=== PATIENT | female | born 1955 | race Two or more races ===

== ENCOUNTER 2019-01-18 12:51 | Emergency (ER) | payer MEDICARE, MEDICAID ==
[~2019-01-18] VITALS: Ht 154.9 cm; Wt 68.0 kg
[2019-01-18 13:53] VITALS: BP 168/77
--- NOTE | 2019-01-18 14:20 | PHYS DOC ---
Past Medical History Past Medical History: Asthma, Diabetes-Type II, High Cholesterol Past Surgical History: Hysterectomy, Other Additional Past Surgical Histo: R. SHOULDER Alcohol Use: None Drug Use: None Adult General Chief Complaint Chief Complaint: ASTHMA HPI HPI Patient is a 63 year old female who presents with persistent cough for 3-4 weeks, saw PCP prescribed allergy medication. Hx of asthma and is out of her inhaler. Used her brothers inhaler and felt better. She denies CP or SOB States the coughing is worse at night. No Hx of CHF, denies leg pain or swelling She states she is here for an inhaler. Patient resting in no distress Review of Systems Review of Systems Constitutional: Denies fever or chills [] Eyes: Denies change in visual acuity, redness, or eye pain [] HENT: Denies nasal congestion or sore throat [] Respiratory: Denies shortness of breath []C/O persistent cough Cardiovascular: No additional information not addressed in HPI [] GI: Denies abdominal pain, nausea, vomiting, bloody stools or diarrhea [] : Denies dysuria or hematuria [] Musculoskeletal: Denies back pain or joint pain [] Integument: Denies rash or skin lesions [] Neurologic: Denies headache, focal weakness or sensory changes [] Endocrine: Denies polyuria or polydipsia [] All other systems were reviewed and found to be within normal limits, except as documented in this note. Current Medications Current Medications Lisinopril Jesenia Metformin Allergies Allergies NKDA Physical Exam Physical Exam Constitutional: Well developed, well nourished, no acute distress, non-toxic appearance. [] HENT: Normocephalic, atraumatic, bilateral external ears normal, oropharynx moist, no oral exudates, nose congested Eyes: PERRLA, EOMI, conjunctiva normal, no discharge. [] Neck: Normal range of motion, no tenderness, supple, no stridor. [] Cardiovascular:Heart rate regular rhythm, no murmur [] Lungs & Thorax: Bilateral breath sounds clear to auscultation, mild dry cough on exam Abdomen: Bowel sounds normal, soft, no tenderness, no masses, no pulsatile masses. [] Skin: Warm, dry, no erythema, no rash. [] Back: No tenderness, no CVA tenderness. [] Extremities: No tenderness, no cyanosis, no clubbing, ROM intact, no edema. [] Neurologic: Alert and oriented X 3, normal motor function, normal sensory function, no focal deficits noted. [] Psychologic: Affect normal, judgement normal, mood normal. [] Current Patient Data Vital Signs Vital Signs Date Time Temp Pulse Resp B/P (MAP) Pulse Ox O2 Delivery O2 Flow Rate FiO2 01/18/19 13:53 98.7 89 20 168/77 (107) 98 Room Air 98.7 EKG EKG [] Radiology/Procedures Radiology/Procedures [] Impressions: Persistent cough, hx of asthma Course & Med Decision Making Course & Med Decision Making Pertinent Labs and Imaging studies reviewed. (See chart for details) []Patient here for persistent dry cough, states it feels like her asthma. Does not have an inhaler Lungs CTA, no hypoxia She declines labs or work up for other etiology. Discussed cardiac or further pulmonary etiologies. No leg pain or swelling. No CP. She reports her PCP did a chest xray when she was prescribed Jesenia and reported NEG result Prescription for Albuterol, continue home medications We did discuss Lisinopril and possible cause of cough, states she has been on this for several years She is to call her PCP in 48 hours for follow up, return if worse or if she will agree to further work up Educated on home care fu and reasons to return to the ER Yazan Disclaimer Yazan Disclaimer This electronic medical record was generated, in whole or in part, using a voice recognition dictation system. Departure Departure Impression: Primary Impression: History of asthma Disposition: 01 HOME, SELF-CARE Condition: STABLE Referrals: UNKNOWN PCP NAME (PCP) Patient Instructions: Asthma, Adult, Cough, Adult Additional Instructions: Go home and rest Lungs clear, we did discuss labs and further work up today Albuterol as prescribed Call your doctor for follow up, discuss possible Lisinopril being the cause of cough Return for any concerns or worsening symptoms ERNESTO CONTRERAS APRN Jan 18, 2019 14:20
== END 2019-01-18 14:38 | disposition home or self-care (01) ==
LOC: ER 12:51
DX: J45.909 Unspecified asthma, uncomplicated (principal); E11.9 Type 2 diabetes mellitus without complications; E78.00 Pure hypercholesterolemia, unspecified
CPT/HCPCS: 99283

== ENCOUNTER 2021-08-28 14:13 | Emergency (ER) | payer MEDICARE, MEDICAID ==
[~2021-08-28] VITALS: Ht 154.9 cm; Wt 76.4 kg
[2021-08-28] MEDS ORDERED: ACETAMINOPHEN 500 MG TABLET PO ONE (16:30)
--- NOTE | 2021-08-28 17:10 | RAD ---
Exam: CT head, cervical spine, thoracic spine and lumbar spine without contrast INDICATION: Fall in shower today, loss of consciousness, head and neck and back pain TECHNIQUE: Sequential axial images through the head, cervical spine, thoracic spine and lumbar spine were obtained without the administration of IV contrast. Exposure: One or more of the following in the visualized dose reduction techniques were utilized for this examination: 1. Automated exposure control 2. Adjustment of the MA and/or KV according to patient size 3. Use of iterative of reconstructive technique Comparisons: None FINDINGS: Head: No focal parenchymal lesion or hemorrhage is identified. There is no midline shift or sulcal effaceme nt. No acute vascular territory infarction is identified. Graham-white distinction is preserved. The ventricular system is within normal limits without compression hydrocephalus. The basal cisterns are well maintained. Mild mucosal thickening of the maxillary sinuses and ethmoid air cells. No acute fractures. Cervical spine: Vertebral body heights and alignment are well-maintained. Fracture to the cervical spine is not identified. Mild multilevel spondylotic change in cervical spine with degenerative disc disease greatest at C4-C5 and C5-C6. Mild bilateral facet arthropathy is also noted in cervical spine. Visualized paraspinal soft tissues are unremarkable. Thoracic spine: Vertebral body heights and alignment are well-maintained. Fracture to the thoracic spine is not identified. No significant spondylotic change in cervical spine. Visualized soft tissues are unremarkable. Lumbar spine: Straightening of the lumbar spine which may be positional. Vertebral body heights are well-maintained . Fracture to the lumbar spine is not identified. Mild multilevel spondylotic change in the lumbar spine with degenerative disc disease greatest at L3- L4 and L4-L5. There is disc bulges at L3-L4 and L4-L5 causing mild spinal canal stenosis. Visualized paraspinal soft tissues are unremarkable. IMPRESSION: 1. No acute intracranial abnormality. 2. Negative CT C-spine for acute traumatic injury. 3. Negative CT T spine for acute traumatic injury. 4. Negative CT L-spine for acute traumatic injury. Electronically signed by: Oly Hadley MD (08/28/2021 5:08 PM) [facility]
[2021-08-28] MEDS: IV NORMAL SALINE 1000ML BAG 1,000 ML IV SCH ×2 (17:12→17:55)
[2021-08-28 17:42] LABS: BASO % 1 % (0-3); EOS % 0 % (0-3); HEMATOCRIT 32.2 % (36.0-47.0); HEMOGLOBIN 10.3 g/dL (12.0-15.5); LYMPH # 1.2 x10^3/uL (1.0-4.8); LYMPH % 15 % (24-48); MEAN CORPUSCULAR HEMOGLOBIN 23 pg (25-35); MEAN CORPUSCULAR HGB CONC 32 g/dL (31-37); MEAN CORPUSCULAR VOLUME 71 fL (79-100); MONO # 0.6 x10^3/uL (0.0-1.1); MONO % 8 % (0-9); NEUT # 5.8 x10^3/uL (1.8-7.7); NEUT % 76 % (31-73); PLATELET COUNT 246 x10^3/uL (140-400); RED BLOOD COUNT 4.57 x10^6/uL (3.50-5.40); RED CELL DISTRIBUTION WIDTH 20.8 % (11.5-14.5); WHITE BLOOD COUNT 7.7 x10^3/uL (4.0-11.0)
[2021-08-28 18:01] LABS: BARBITURATES NEG (NEG); BENZODIAZEPINES NEG (NEG); CANNABINOIDS NEG (NEG); COCAINE NEG (NEG); METHADONE NEG (NEG); OPIATES NEG (NEG); PHENCYCLIDINE NEG (NEG)
[2021-08-28 18:05] LABS: AMPHETAMINE/METHAMPHETAMINE NEG (NEG)
[2021-08-28 18:13] LABS: BACTERIA,URINE 0 /HPF (0-FEW); RBC,URINE 0 /HPF (0-2)
[2021-08-28 18:15] LABS: CALCIUM 9.7 mg/dL (8.5-10.1); CREATININE 0.9 mg/dL (0.6-1.0); GFR 62.3; POTASSIUM 4.6 mmol/L (3.5-5.1)
[2021-08-28 18:19] LABS: INFLUENZA A PATIENT NEGATIVE (NEGATIVE); INFLUENZA B PATIENT NEGATIVE (NEGATIVE)
[2021-08-28 18:21] LABS: ALBUMIN/GLOBULIN RATIO 0.9 (1.0-1.7); MAGNESIUM 1.9 mg/dL (1.8-2.4); TOTAL BILIRUBIN 0.5 mg/dL (0.2-1.0); TOTAL PROTEIN 8.6 g/dL (6.4-8.2)
[2021-08-28 18:29] LABS: CREATINE KINASE 72 U/L (26-192)
--- NOTE | 2021-08-28 18:35 | PHYS DOC ---
Past Medical History Past Medical History: Asthma, Dementia, Diabetes-Type II, High Cholesterol Past Surgical History: Hysterectomy, Other Additional Past Surgical Histo: R. SHOULDER, BILAT WRIST Smoking Status: Former Smoker Alcohol Use: None Drug Use: None General Adult EDM: Chief Complaint: MECHANICAL FALL HPI: HPI: Patient is a 66 year old female with a history of dementia, diabetes type 2, hypertension, dizziness, high cholesterol, presenting to the ED today to be e valuated for a fall. Patient states she was taking a shower, she became dizzy and fell. Daughter states patient has history of dizziness and is on medication for this. Patient is complaining her whole body is hurting. Daughter says she has been running a fever since this morning. Daughter states when she went to help patient after she fell she found her legs in the bathtub and the rest of her body outside the bed. Patient is Vietnamese-speaking and the daughter interpreted for her Review of Systems: Review of Systems: Constitutional: Reports fever Eyes: Denies change in visual acuity. [] HENT: Denies nasal congestion or sore throat. [] Respiratory: Denies cough or shortness of breath. [] Cardiovascular: Denies chest pain or edema. [] GI: Denies abdominal pain, nausea, vomiting, bloody stools or diarrhea. [] : Denies dysuria. [] Musculoskeletal: Reports her whole body hurts Integument: Denies rash. [] Neurologic: Reports dizziness. Denies headache, focal weakness or sensory changes. [] Psychiatric: Denies depression or anxiety. [] Heart Score: C/O Chest Pain: N/A Risk Factors: Risk Factors: DM, Current or recent (<one month) smoker, HTN, HLP, family history of CAD, obesity. Risk Scores: Score 0 - 3: 2.5% MACE over next 6 weeks - Discharge Home Score 4 - 6: 20.3% MACE over next 6 weeks - Admit for Clinical Observation Score 7 - 10: 72.7% MACE over next 6 weeks - Early Invasive Strategies Current Medications: Current Medications Medications (Trade) Dose Ordered Sig/Deborah Start Time Stop Time Status Last Admin Dose Admin Acetaminophen (Tylenol) 1,000 mg 1X ONCE 08/28/21 16:30 08/28/21 16:31 DC 08/28/21 17:55 1,000 MG Sodium Chloride 1,000 ml @ 1,440 mls/hr Q42M 08/28/21 16:30 08/28/21 17:30 DC 08/28/21 17:55 1,440 MLS/HR Allergies: Allergies: Allergies Coded Allergies Type Severity Reaction Last Updated Verified Penicillins Allergy Intermediate 08/28/21 Yes aspirin Allergy Intermediate 08/28/21 Yes Physical Exam: PE: Constitutional: Well developed, well nourished, no acute distress, non-toxic appearance. [] HENT: Normocephalic, atraumatic, bilateral external ears normal, oropharynx moist, no oral exudates, nose normal. [] Eyes: PERRLA, EOMI, conjunctiva normal, no discharge. [] Neck: Normal range of motion, diffuse paraspinal muscle tenderness to posterior cervical spine, no midline cervical spine tenderness, supple, no stridor. [] Cardiovascular:Heart rate regular rhythm, no murmur [] Lungs & Thorax: Bilateral breath sounds clear to auscultation [] Abdomen: Bowel sounds normal, soft, no tenderness, no masses, no pulsatile masses. [] Skin: Warm, dry, no erythema, no rash. [] Back: No tenderness, no CVA tenderness. [] Extremities: No tenderness, no cyanosis, no clubbing, ROM intact, no edema. [] Neurologic: Alert and oriented X 3, normal motor function, normal sensory function, no focal deficits noted. Cranial nerves II through XII intact Psychologic: Affect normal, judgement normal, mood normal. [] Current Patient Data: Labs: Laboratory Tests Test 08/28/21 17:28 08/28/21 17:32 08/28/21 17:39 White Blood Count 7.7 x10^3/uL (4.0-11.0) Red Blood Count 4.57 x10^6/uL (3.50-5.40) Hemoglobin 10.3 g/dL (12.0-15.5) L Hematocrit 32.2 % (36.0-47.0) L Mean Corpuscular Volume 71 fL (79-100) L Mean Corpuscular Hemoglobin 23 pg (25-35) L Mean Corpuscular Hemoglobin Concent 32 g/dL (31-37) Red Cell Distribution Width 20.8 % (11.5-14.5) H Platelet Count 246 x10^3/uL (140-400) Neutrophils (%) (Auto) 76 % (31-73) H Lymphocytes (%) (Auto) 15 % (24-48) L Monocytes (%) (Auto) 8 % (0-9) Eosinophils (%) (Auto) 0 % (0-3) Basophils (%) (Auto) 1 % (0-3) Neutrophils # (Auto) 5.8 x10^3/uL (1.8-7.7) Lymphocytes # (Auto) 1.2 x10^3/uL (1.0-4.8) Monocytes # (Auto) 0.6 x10^3/uL (0.0-1.1) Eosinophils # (Auto) 0.0 x10^3/uL (0.0-0.7) Basophils # (Auto) 0.0 x10^3/uL (0.0-0.2) Sodium Level 136 mmol/L (136-145) Potassium Level 4.6 mmol/L (3.5-5.1) Chloride Level 98 mmol/L (98-107) Carbon Dioxide Level 25 mmol/L (21-32) Anion Gap 13 (6-14) Blood Urea Nitrogen 13 mg/dL (7-20) Creatinine 0.9 mg/dL (0.6-1.0) Estimated GFR (Cockcroft-Gault) 62.3 BUN/Creatinine Ratio 14 (6-20) Glucose Level 152 mg/dL (70-99) H Calcium Level 9.7 mg/dL (8.5-10.1) Magnesium Level Pending Total Bilirubin Pending Aspartate Amino Transferase (AST) Pending Alanine Aminotransferase (ALT) Pending Alkaline Phosphatase Pending Total Protein Pending Albumin Pending Albumin/Globulin Ratio Pending Influenza Type A Antigen Negative (NEGATIVE) Influenza Type B Antigen Negative (NEGATIVE) SARS-CoV-2 Antigen (Rapid) Negative (NEGATIVE) Urine Collection Type Unknown Urine Color (Auto) Yellow Urine Turbidity Clear Urine pH (Auto) 6.0 (<5.0-8.0) Urine Specific [place] 1.029 (1.000-1.030) Urine Protein (Auto) 30 mg/dL (Negative) Urine Glucose (Auto)(UA) Negative mg/dL (Negative) Urine Ketones (Auto) 20 mg/dL (Negative) Urine Blood (Auto) Negative (Negative) Urine Nitrite Negative (Negative) Urine Bilirubin (Auto) Negative (Negative) Urine Urobilinogen (Auto) Normal mg/dL (Normal) Urine Leukocyte Esterase (Auto) Negative (Negative) Urine RBC 0 /HPF (0-2) Urine WBC 1-4 /HPF (0-4) Urine Squamous Epithelial Cells Few /LPF Urine Bacteria 0 /HPF (0-FEW) Urine Mucus Mod /LPF Urine Opiates Screen Neg (NEG) Urine Methadone Screen Neg (NEG) Urine Barbiturates Neg (NEG) Urine Phencyclidine Screen Neg (NEG) Urine Amphetamine/Methamphetamine Neg (NEG) Urine Benzodiazepines Screen Neg (NEG) Urine Cocaine Screen Neg (NEG) Urine Cannabinoids Screen Neg (NEG) Urine Ethyl Alcohol Neg (NEG) Laboratory Tests 08/28/21 17:28 Laboratory Tests 08/28/21 17:28 Vital Signs: Vital Signs Date Time Temp Pulse Resp B/P (MAP) Pulse Ox O2 Delivery O2 Flow Rate FiO2 08/28/21 18:05 98.5 86 22 128/60 (82) 97 Room Air 98.5 EKG: EK interpreted by Dr. Al sinus rhythm heart rate 82 no STEMI [] Radiology/Procedures: Radiology/Procedures: []PROCEDURE: CT LUMBAR SPINE WO CONTRAST Exam: CT head, cervical spine, thoracic spine and lumbar spine without contrast INDICATION: Fall in shower today, loss of consciousness, head and neck and back pain TECHNIQUE: Sequential axial images through the head, cervical spine, thoracic spine and lumbar spine were obtained without the administration of IV contrast. Exposure: One or more of the following in the visualized dose reduction techniques were utilized for this examination: 1. Automated exposure control 2. Adjustment of the MA and/or KV according to patient size 3. Use of iterative of reconstructive technique Comparisons: None FINDINGS: Head: No focal parenchymal lesion or hemorrhage is identified. There is no midline shift or sulcal effacement. No acute vascular territory infarction is identified. Graham-white distinction is preserved. The ventricular system is within normal limits without compression hydrocephalus. The basal cisterns are well maintained. Mild mucosal thickening of the maxillary sinuses and ethmoid air cells. No acute fractures. Cervical spine: Vertebral body heights and alignment are well-maintained. Fracture to the cervical spine is not identified. Mild multilevel spondylotic change in cervical spine with degenerative disc disease greatest at C4-C5 and C5-C6. Mild bilateral facet arthropathy is also noted in cervical spine. Visualized paraspinal soft tissues are unremarkable. Thoracic spine: Vertebral body heights and alignment are well-maintained. Fracture to the thoracic spine is not identified. No significant spondylotic change in cervical spine. Visualized soft tissues are unremarkable. Lumbar spine: Straightening of the lumbar spine which may be positional. Vertebral body heights are well-maintained. Fracture to the lumbar spine is not identified. Mild multilevel spondylotic change in the lumbar spine with degenerative disc disease greatest at L3-L4 and L4-L5. There is disc bulges at L3-L4 and L4-L5 causing mild spinal canal stenosis. Visualized paraspinal soft tissues are unremarkable. IMPRESSION: 1. No acute intracranial abnormality. 2. Negative CT C-spine for acute traumatic injury. 3. Negative CT T spine for acute traumatic injury. 4. Negative CT L-spine for acute traumatic injury. Electronically signed by: Oly Saunders MD (08/28/2021 5:08 PM) [facility] DICTATED and SIGNED BY: OLY SAUNDERS MD DATE: 08/28/211654 Course & Med Decision Making: Course & Med Decision Making Pertinent Labs and Imaging studies reviewed. (See chart for details) This a 66-year-old female patient presented to the ED today to be evaluated for dizziness and falling. Also running a fever. Vitals on arrival to the ED temperature 101.2, heart rate 92, respiration 20 on room air, O2 sats 94%, blood pressure 139/59. Patient was started on sepsis protocal as well as CTs of the head, cervical spine, thoracic and lumbar spine were ordered. CBC with a normal WBC, hemoglobin 10.3 with hematocrit of 32.2, no baseline for comparison, patient denies any bleeding or being on blood thinners. UA negative for infection, CMP with no acute findings. CT of the head, cervical spine, thoracic and lumbar spine are negative for any acute findings. Bilateral hip x-rays including pelvis are negative, chest x-ray is negative for any acute findings. Negative influenza A and B rapid test, negative rapid Covid test Patient is feeling better. She is ambulatory. Patient was discharged to home. Follow-up with PCP in the course of this week. Dragon Disclaimer: Dragnubia Disclaimer: This electronic medical record was generated, in whole or in part, using a voice recognition dictation system. Departure Departure Impression: Primary Impression: Fall Qualified Codes: W19.XXXA - Unspecified fall, initial encounter Additional Impressions: Back pain Qualified Codes: M54.50 - Low back pain, unspecified Acute cervical sprain Qualified Codes: S13.9XXA - Sprain of joints and ligaments of unspecified parts of neck, initial encounter Dizziness Disposition: HOME / SELF CARE / HOMELESS Condition: STABLE Referrals: MARCELL REYES MD (PCP) Follow-up in the next 1 to 2 days Patient Instructions: Back Pain, Adult, [id number], Dizziness, [id number], Fall Prevention and Home Safety Additional Instructions: You were evaluated in the emergency room after falling, your CT of the head, neck, mid and low back as well as x-rays of bilateral hips including pelvis are negative for any acute findings. You can take Tylenol as needed for pain or fever. Please follow-up with your doctor in the course of this week URIEL OLIVER APRN Aug 28, 2021 18:34
[2021-08-28 18:37] LABS: HYPOCHROMIA SLIGHT; MICROCYTOSIS SLIGHT; PLT ESTIMATE ADEQUATE (ADEQUATE)
--- NOTE | 2021-08-28 18:53 | EKG ---
[facility] [address] [place] [address] Test Date: 2021-08-28 Test Time: 17:19:05 Pat Name: SAYRA OVIEDO Department: Room: Gender: F [employer]: : [id number] Requested By: URIEL OLIVER Order Number: [id number] Reading MD: Vel Garcia Measurements Intervals [place] Rate: 82 P: 35 MA: 146 QRS: -12 QRSD: 70 T: 26 QT: 372 QTc: 438 Interpretive Statements SINUS RHYTHM LEFTWARD AXIS NO SPECIFIC ECG ABNORMALITIES RI6.01 No previous ECG available for comparison Electronically Signed On 09-01-2021 13:48:05 CDT by Vel Garcia
[2021-08-28] MEDS ORDERED: fentaNYL PF VIAL 100 MCG/2 ML VIAL IVP ONE (19:00)
--- NOTE | 2021-08-28 19:42 | RAD ---
Bilateral hips 2 views with one view pelvis HISTORY: Pain after a fall Single view was taken of the pelvis. An acute pelvic fracture is not identified. There is degenerativ e disc disease in lumbar spine. AP and lateral views were taken of the right hip. There is no acute fracture or osseous abnormality. AP and lateral views were taken the left hip. There is no acute fracture or osseous abnormality. IMPRESSION: 1. No pelvic fracture noted. 2. No fracture noted in either hip. Electronically signed by: Ananth Shahid MD (08/28/2021 7:40 PM) [facility]
--- NOTE | 2021-08-28 19:47 | RAD ---
AP chest. HISTORY: Fall, fever AP view was taken of the chest. Lungs are free of acute infiltrates. Heart is normal in size. There i s no pleural effusion. There is arthritis in both shoulders. IMPRESSION: 1. No acute infiltrates. Electronically signed by: Ananth Shahid MD (08/28/2021 7:44 PM) [facility]
[2021-08-28 20:21] VITALS: BP 129/87
== END 2021-08-28 20:57 | disposition home or self-care (01) ==
LOC: ER 14:13
DX: S13.9XXA Sprain of joints and ligaments of unspecified parts of neck, initial encounter (principal); M54.50 Low back pain, unspecified; Z20.822 Contact with and (suspected) exposure to COVID-19; M54.6 Pain in thoracic spine; R42 Dizziness and giddiness; R51.9 Headache, unspecified; J45.909 Unspecified asthma, uncomplicated; F03.90 Unspecified dementia, unspecified severity, without behavioral disturbance, psychotic disturbance, mood disturbance, and anxiety; E11.9 Type 2 diabetes mellitus without complications; E78.00 Pure hypercholesterolemia, unspecified; M25.512 Pain in left shoulder; Z87.891 Personal history of nicotine dependence; Z88.0 Allergy status to penicillin; Z88.6 Allergy status to analgesic agent; W18.39XA Other fall on same level, initial encounter; Y93.89 Activity, other specified; Y92.89 Other specified places as the place of occurrence of the external cause; Y99.8 Other external cause status
CPT/HCPCS: 36415; 70450; 71045; 72125; 72128; 72131; 73521; 80053; 80307; 81001; 82553; 83735; 83880; 84145; 84484; 85025; 87040; 87070; 87426; 87428; 87880; 93005; 96361; 96374; 99285; C9803; J3010; J7030; U0003